=== PATIENT | male | born 1990 | race Caucasian/White ===

== ENCOUNTER → 2017-08-09 | Outpatient (CLI) | payer OTHER, MEDICAID ==
[~2017-08-09] MED LIST: FLEXERIL10 MG PO; HYDROCODON-ACE1 EAC4 PO; NORCO 5-325 MG1 TAB PO; PERCOCET 5-3251 EACH PO; VALIUM5 MG PO
[2017-08-09 14:10] LABS: BARBITURATE NEGATIVE (NEGATIVE); COCAINE NEGATIVE (NEGATIVE); OPIATES NEGATIVE (NEGATIVE)
[2017-08-09 14:11] LABS: AMPHETAMINE NEGATIVE (NEGATIVE)
== END | disposition disaster alternative care site (69) ==
LOC: GLAB 12:00
PROVIDERS: Orthopaedic Surgery
DX: G89.29 Other chronic pain (principal); R82.5 Elevated urine levels of drugs, medicaments and biological substances